=== PATIENT | male | born 1985 | race African-American/Black ===

== ENCOUNTER 2021-07-23 00:07 | Emergency (ER) | payer MEDICAID ==
[~2021-07-23] VITALS: Ht 177.8 cm; Wt 82.0 kg
[2021-07-23] MEDS ORDERED: IBUP-2028 MT (03:23)
[2021-07-23 03:56] VITALS: BP 126/72
== END 2021-07-23 03:57 | disposition home or self-care (01) ==
LOC: ER 00:07
DX: R07.89 Other chest pain (principal)
CPT/HCPCS: 71045; 93005; 99283